=== PATIENT | male | born 1970 | race Caucasian/White ===

== ENCOUNTER 2020-06-06 14:37 | Outpatient (CLI) | payer BC, SELFPAY ==
--- NOTE | ~2020-06-06 | XR_ITS ---
EXAMINATION: XR abdomen/kub 1V EXAM DATE: 06/06/2020 14:56 INDICATION: Right-sided abdominal pain. TECHNIQUE: Frontal projection of the upper abdomen, frontal projection lower abdomen/pelvis for inter pretation. There is no prior study for comparison. FINDINGS: There is expected amount of colonic stool and gas. No small bowel dilation, nonobstructiv e bowel gas pattern. There are no suspicious calcifications identified. There is no organomegaly suspected. There is mild to moderate symmetric bilateral hip primary osteoarthritis. IMPRESSION: Unremarkable abdomen x-ray exam. Reviewed, dictated and finalized at location [facility]
== END 2020-06-06 14:38 | disposition home or self-care (01) ==
LOC: ANHIMG 14:48
PROVIDERS: PCP Family Medicine; Visit Provider Nurse Practitioner Family
DX: R10.9 Unspecified abdominal pain (principal)
CPT/HCPCS: 74018

== ENCOUNTER 2021-04-11 01:19 | Day surgery (SDC) | payer BC, SELFPAY ==
[2021-03-21 14:00] VITALS: BMI 39.0
[2021-04-11 06:56] VITALS: BP 139/107; PULSE 92; RESP 20; TEMP 36.5; O2SAT 97; BMI 37.4
[2021-04-11] MEDS: LACTATED RINGERS 1,000 ML 150 ML IV CONT (06:59)
--- NOTE | 2021-04-11 07:47 | PM.HPGS ---
History of Present Illness History of Present Illness Consent: Risks, benefits, and alternatives have been discussed and questions answered. Patient agrees to proceed with procedure. Chief complaint: neoplasm screening Narrative: Tony Boykin is a 50 year old male Referred for colon cancer screening Review of Systems Review of Systems: All systems reviewed & are unremarkable except as noted in HPI and below PMFSH Past Medical History Medical History BMI 37.0-37.9, adult BMI 38.0-38.9,adult FRIAS (dyspnea on exertion) Multiple myeloma Social History Social History Alcohol intake: current Substance use: never Substance use type: does not use Living arrangements: with family Spiritual care concerns: No Meds Home Medications and Allergies Home Medications Medication Instructions Recorded Confirmed Type lenalidomide 15 mg capsule 15 mg PO DAILY 05/12/19 04/11/21 History Allergies Allergy/AdvReac Type Severity Reaction Status Date / Time Sulfa (Sulfonamide Allergy Unknown Unknown Verified 04/11/21 06:55 Antibiotics) Vital Signs Vital Signs - 24 hr 04/11/21 06:56 Temperature 36.5 C Pulse Rate 92 Respiratory Rate 20 Blood Pressure 139/107 H Pulse Oximetry 97 Exam Resp: Auscultation: clear to auscultation bilaterally Cardio: Rate: regular rate Rhythm: regular rhythm GI: GI Palp: Yes Soft to palpation and No Tenderness to palpation present (GI) Assessment and Plan Assessment and plan (1) Screen for colon cancer: Code(s): Z12.11 - Encounter for screening for malignant neoplasm of colon Status: Acute Assessment and Plan: Colonoscopy with possible biopsy or polypectomy or cautery or injection of substances.
--- NOTE | 2021-04-11 07:51 | WPDANESEPPF ---
Anes - Initial Pre Proc Eval Procedure: Operation Date: 04/11/21 08:00 Proposed Procedures p Screening Colonoscopy - Paul Leone MD Date/Time: 04/11/21 07:51 Surgeon: Paul Leone MD Pre Op Diagnosis: neoplasm screening Patient Data Age: 50 Gender: M Height: 1.75 m Weight: 115 kg Last Vital Signs Temp 97.7 F 04/11/21 06:56 Pulse 92 04/11/21 06:56 Resp 20 04/11/21 06:56 BP 139/107 H 04/11/21 06:56 Pulse Ox 97 04/11/21 06:56 Allergies Allergy/AdvReac Type Severity Reaction Status Date / Time Sulfa (Sulfonamide Allergy Unknown Unknown Verified 04/11/21 06:55 Antibiotics) Home Medications Medication Instructions Recorded Confirmed Type lenalidomide 15 mg capsule 15 mg PO DAILY 05/12/19 04/11/21 History Patient hx anesthesia problems: none Family hx anesthesia problems: none Results Review: All pre-operative results and documents have been reviewed as part of the pre-operative evaluation. [facility] Past Medical History Medical History BMI 37.0-37.9, adult BMI 38.0-38.9,adult FRIAS (dyspnea on exertion) Multiple myeloma Social History Social History Alcohol intake: current Substance use: never Substance use type: does not use Living arrangements: with family Spiritual care concerns: No Anes - Eval Final PreProcedure Day of Procedure 04/11/21 07:51 Patient weight: obese Heart: regular rate and rhythm Lungs: clear to auscultation Airway: Mallampati scale class II Neurological: alert and oriented Last oral intake: >/= 8 hours ASA classification: III Emergent: no Anesthetic plan: proceed Anesthesia type and monitoring: general GIVS and standard monitoring Results Review: All pre-operative results and documents have been reviewed as part of the pre-operative evaluation. Informed Consent: The patient's anesthetic plan and its attendant risks and benefits were discussed with the patient/family/POA. Questions were solicited and answers provided to the satisfaction of the patient/family/POA.
[2021-04-11 08:19] VITALS: BP 128/66; PULSE 76; RESP 38; O2SAT 98
[2021-04-11 08:29] VITALS: BP 138/91; PULSE 68; RESP 19; O2SAT 97
[2021-04-11 08:39] VITALS: BP 129/91; PULSE 70; RESP 22; O2SAT 99
== END 2021-04-11 08:55 | disposition home or self-care (01) ==
PROVIDERS: PCP Family Medicine; Visit Provider Internal Medicine Gastroenterology
PROC: 0DJD8ZZ Inspection of Lower Intestinal Tract, Via Natural or Artificial Opening Endoscopic (ICD-10-PCS; CPT 45378; principal; 2021-04-11 08:00)
DX: Z12.11 Encounter for screening for malignant neoplasm of colon (principal); K57.30 Diverticulosis of large intestine without perforation or abscess without bleeding; C90.00 Multiple myeloma not having achieved remission; E66.9 Obesity, unspecified; Z68.37 Body mass index [BMI] 37.0-37.9, adult
CPT/HCPCS: 45378; J2704; J7120

== ENCOUNTER 2021-11-18 09:31 | Outpatient (CLI) | payer BC, SELFPAY ==
--- NOTE | ~2021-11-18 | XR_ITS ---
EXAMINATION: XR chest 2V DATE: 11/18/2021 09:49 INDICATION: Other chest pain. Cough and shortness of breath. TECHNIQUE: Frontal and lateral views of the chest were obtained. COMPARISON: Chest 2 views 07/04/2019, chest CT 05/12/2019 FINDINGS: There is discoid atelectasis in right midlung zone. No pleural effusion or pneumothorax. Th e heart size is normal. There are old healed bilateral rib fractures. There is an old burst fracture of T6. IMPRESSION: 1. Discoid atelectasis in right midlung zone. Follow-up radiographs are recommended to confirm resolu tion and exclude obstructing mass. Reviewed, dictated and finalized at location A. IMPRESSION: 1. Discoid atelectasis in right midlung zone. Follow-up radiographs are recomme nded to confirm resolution and exclude obstructing mass.
--- NOTE | 2021-11-18 09:35 | ECG_ITS ---
Measurements Intervals [place] Rate: 78 P: 16 IL: 150 QRS: -17 QRSD: 76 T: 29 QT: 392 QTc: 447 Interpretive Statements SINUS RHYTHM FREQUENT ATRIAL PREMATURE COMPLEXES EARLY PRECORDIAL R/S TRANSITION VOLTAGE CRITERIA FOR LVH ABNORMAL ECG Electronically Signed On 11-18-2021 14:12:53 CDT by Edson Brandon D.O.
== END 2021-11-18 09:32 | disposition home or self-care (01) ==
PROVIDERS: PCP Family Medicine; Visit Provider Nurse Practitioner Family
DX: R07.89 Other chest pain (principal); R06.02 Shortness of breath; R91.8 Other nonspecific abnormal finding of lung field; R94.31 Abnormal electrocardiogram [ECG] [EKG]
CPT/HCPCS: 71046; 93005

== ENCOUNTER 2021-11-18 19:24 | Emergency (ER) | payer BC, SELFPAY ==
[2021-11-18 19:35] VITALS: BP 173/78; PULSE 58; RESP 18; TEMP 36.3; O2SAT 98
[2021-11-18 20:14] VITALS: BP 166/89; PULSE 100; PULSE 80; RESP 22; O2SAT 99
[2021-11-18 20:51] LABS: Basophils Absolute Auto 0.1 K/mm3 (0.0-0.1); Basophils Percent Auto 1.6 % (0.2-1.2); Eosinophils Percent Auto 0.9 % (0-4.4); Hematocrit 40.4 % (42.0-52.0); Hemoglobin 13.7 g/dL (14.0-18.0); Immature Granulocyte Absolute 0.02 K/mm3 (0.00-0.031); Immature Granulocyte Percent A 0.4 % (0-0.5); Lymphocytes Absolute Auto 2.31 K/mm3 (0.9-3.2); Lymphocytes Percent Auto 51.4 % (18.3-44.2); Mean Corpuscular HGB Conc 33.9 g/dl (32-36); Mean Corpuscular Hemoglobin 32.2 pg (26-34); Mean Corpuscular Volume 95.1 fl (80-100); Mean Platelet Volume 9.4 fl (7.4-10.4); Monocytes Absolute Auto 0.5 K/mm3 (0.1-0.6); Monocytes Percent Auto 10.5 % (2.6-8.5); Neutrophils Absolute Auto 1.6 K/mm3 (1.3-6.7); Neutrophils Percent Auto 35.2 % (45.5-73.1); Platelet Count Result 269 k/mm3 (150-375); Red Blood Count 4.25 M/mm3 (4.6-6.20); Red Cell Distribution Width 13.8 % (11.5-14.5); White Blood Count 4.5 K/mm3 (4.5-10.0)
[2021-11-18 21:01] LABS: Prothrombin Time 12.7 Seconds (11.1-14.7)
[2021-11-18 21:02] LABS: Alanine Aminotransferase 43 U/L (6-50); Albumin Level 3.9 g/dL (3.5-5.1); Alkaline Phosphatase 83 U/L (38-126); Anion Gap 8 mmol/L (8-16); Aspartate Amino Transferase 41 U/L (17-59); Bilirubin,Total 0.6 mg/dL (0.2-1.3); Blood Urea Nitrogen 22 mg/dL (9-20); Calcium 8.8 mg/dL (8.4-10.2); Carbon Dioxide 24 mmol/L (22-30); Chloride 107 mmol/L (98-107); Estimated CRCL calculation 65 ml/min; Estimated Glomerular Filt Rate 49; Glucose 136 mg/dL (65-110); Partial Thromboplastin Time 25.4 SECONDS (22.3-36.8); Potassium 3.8 mmol/L (3.4-5.0); Sodium 139 mmol/L (137-145)
--- NOTE | 2021-11-18 21:17 | ED.SOB ---
HPI - SOB/Dyspnea General Chief Complaint: Shortness of Breath/Dyspnea Stated Complaint: sob, chest pain Time Seen by Provider: 11/18/21 20:15 History of Present Illness HPI Narrative: Patient is a 51-year-old male with history of multiple myeloma and PE who presents ER with cough and shortness of breath. Reports cough has been ongoing couple months. It occasionally makes him short of breath with exertion. No shortness of breath this time. No chest pain or chest pressure. Reports he had an outpatient chest x-ray that showed possible lung obstruction and then his doctor called him at 5 PM and sent him to the ER. He has no hemoptysis. No lower extremity swelling. No pain in the calf. Patient is not currently anticoagulated. No fevers or chills, occasional sweats due to his multiple myeloma. Related Data Home Medications Medication Instructions Recorded Confirmed lenalidomide 15 mg capsule 15 mg PO DAILY 05/12/19 11/18/21 (Revlimid) cholecalciferol (vitamin D3) 10 10 mcg PO DAILY 11/18/21 11/18/21 mcg (400 unit) capsule Allergies Allergy/AdvReac Type Severity Reaction Status Date / Time Sulfa (Sulfonamide Allergy Unknown Unknown Verified 11/18/21 08:27 Antibiotics) Review of Systems Review of Systems: All systems reviewed & are unremarkable except as noted in HPI and below Constitutional: Constitutional: Denies chills, Denies fatigue and Denies fever(s) Comments: Occasional sweats ENT: Denies nasal congestion and Denies sore throat Cardiovascular: Cardiovascular: Denies chest pain, Denies rapid heart rate and Denies radiating jaw, neck or arm pain Respiratory: Respiratory: Denies chest congestion, Reports cough, Reports dyspnea and Denies wheezing Gastrointestinal: Gastrointestinal: Denies abdominal pain, Denies nausea and Denies vomiting [facility] Past Medical History Medical History (Updated 11/18/21 @ 21:23 by Oscar Wyatt MD) BMI 37.0-37.9, adult BMI 38.0-38.9,adult FRIAS (dyspnea on exertion) Multiple myeloma Pulmonary embolism Surgical History Surgical History (Updated 11/18/21 @ 21:20 by Oscar Wyatt MD) No pertinent past surgical history Social History Social History Alcohol intake: current Substance use: never Substance use type: does not use Spiritual care concerns: No Exam Narrative: GENERAL: Well-appearing, well-nourished, and in no acute distress. HEAD: Normocephalic, atraumatic. EYES: PERRL and EOMI. ENT: Mucous membranes moist. CHEST: Clear to auscultation. No respiratory distress. HEART: Regular rate and rhythm. Normal peripheral pulses. ABDOMEN: Soft, nontender, nondistended EXTREMITIES: Normal range of motion. No edema. SKIN: Warm, dry, no rash. NEURO: Alert and oriented x3. PSYCH: Normal mood and affect. Course Course Emergency Course: Patient has declined CTA of the chest to rule out PE. Patient reports that his doctor tried to order a CT earlier but because of the prior authorization that need to occur it was not performed. He does not want to risk having to pay [id number] for a imaging study. He wishes to leave AGAINST MEDICAL ADVICE at this time. He understands that he may be risking and permanent disability by making this decision. He will contact his physicians in the morning for further evaluation and treatment. Vital Signs Vital signs: Vital Signs Temperature 97.4 F L 11/18/21 19:35 Pulse Rate 58 L 11/18/21 19:35 Respiratory Rate 18 11/18/21 19:35 Blood Pressure 173/78 H 11/18/21 19:35 Pulse Oximetry 98 11/18/21 19:35 Oxygen Delivery Room Air 11/18/21 19:35 Temperature 97.4 F L 11/18/21 19:35 Pulse Rate 100 11/18/21 20:14 Respiratory Rate 22 H 11/18/21 20:14 Blood Pressure 166/89 H 11/18/21 20:14 Pulse Oximetry 99 11/18/21 20:14 Oxygen Delivery Room Air 11/18/21 20:14 MDM - SOB/Dyspnea Lab Data Result diag
== END 2021-11-19 01:11 | disposition left against medical advice (07) ==
PROVIDERS: Emergency Provider Emergency Medicine; PCP Family Medicine
DX: R06.00 Dyspnea, unspecified (principal)
CPT/HCPCS: 36415; 80053; 85025; 85610; 85730; 99283

== ENCOUNTER 2021-11-19 09:49 | Outpatient (CLI) | payer BC, SELFPAY ==
--- NOTE | ~2021-11-19 | CT_ITS ---
EXAMINATION: CTA chest PE protocol DATE: 11/19/2021 10:22 INDICATION: Shortness of breath TECHNIQUE: Computed tomography (CT) pulmonary angiogram of the chest was performed with 100 mL Omnipa que-350 intravenous contrast. Additional 3D reconstructions utilizing coronal maximum intensity proje ction (MIP) were performed. Automated exposure control and iterative reconstruction technique were em ployed. The dose-length product was 855.65 mGy-cm. COMPARISON: Left/ FINDINGS: Excellent contrast opacification of the pulmonary arteries. There is mild streak artifact from dense contrast in the superior vena cava and right atrium. Mild scattered respiratory motion artifact which does not significantly limit evaluation. No pulmonary embolism. Lenticular region of consolidation w ith some surrounding groundglass and tree-in-bud opacities at the anterior segment of the right upper lobe and and additional tree-in-bud opacities in the posterior segment of the right upper lobe, both regions consistent with pneumonia. No pulmonary edema or pleural effusion. Heart size is normal. No pericardial effusion. 5.0 x 4.7 cm these from aneurysm of the ascending thoracic aorta. No dissection . No pathologically enlarged thoracic lymphadenopathy. Bilateral gynecomastia. Diffuse hepatic steato sis. Osteopenia with numerous chronic lytic lesions of bone suspicious for multiple myeloma. Chronic T6 compression fracture with change of prior vertebroplasty. Old healed bilateral rib fractures. IMPRESSION: 1. No pulmonary embolism. 2. Right upper lobe pneumonia. 3. 5.0 cm ascending thoracic aortic aneurysm. 4. Diffuse osteopenia and widespread chronic lytic bone lesions consistent with known history of mult iple myeloma. Reviewed, dictated and finalized at location B. IMPRESSION: 1. No pulmonary embolism. 2. Right upper lobe pneumonia. 3. 5.0 cm ascending thoracic aortic aneurysm. 4. Diffuse osteopenia and widespread chronic lytic bone lesions consistent with known history of multiple myeloma.
== END 2021-11-19 09:50 | disposition home or self-care (01) ==
PROVIDERS: PCP Family Medicine; Visit Provider Nurse Practitioner Family
DX: R06.02 Shortness of breath (principal); R07.89 Other chest pain; R61 Generalized hyperhidrosis; I71.4 Abdominal aortic aneurysm, without rupture; M85.88 Other specified disorders of bone density and structure, other site
CPT/HCPCS: 71275; Q9967

== ENCOUNTER → 2022-09-04 14:34 | Outpatient (CLI) | payer BC, SELFPAY ==
--- NOTE | ~2022-09-04 | XR_ITS ---
XR chest 2V 09/04/2022 14:48 Indication: Cough. History of multiple myeloma. Procedure: 2 view chest Comparison: Comparison to multiple prior studies sequentially, with oldest reviewed study dated 03/10. Findings: Heart size normal. No focal air space disease, pulmonary edema, pleural effusion or suspect ed pneumothorax. There are multiple healed right rib fractures. Impression: 1: No acute cardiopulmonary disease. Reviewed, dictated and finalized at location A. Impression: 1: No acute cardiopulmonary disease.
== END ==
PROVIDERS: PCP Family Medicine; Visit Provider Nurse Practitioner Family
DX: R05.9 Cough, unspecified (principal)
CPT/HCPCS: 71046

== ENCOUNTER 2023-10-11 17:45 | Inpatient (IN) | payer BC, SELFPAY ==
[2023-10-11] VITALS (11 sets, daily range): BP systolic 104–138; BP diastolic 55–87; PULSE 89–176; RESP 16–23; TEMP 36.6–37.2; O2SAT 97–100; BMI 40.2
--- NOTE | ~2023-10-11 | XR_ITS ---
EXAMINATION: XR chest 1V portable Exam Date/Time: 10/11/2023 18:00 CDT HISTORY: elevated hr Comparison: 08/25/2022, report only. RESULT: Lines, tubes, and devices: None. Lungs and pleura: Clear. Cardiomediastinal silhouette: Unremarkable. Other: No acute osseous or upper abdominal finding. Old healed right rib fractures. IMPRESSION: No acute cardiopulmonary process. Reviewed, dictated and finalized at location K.
--- NOTE | 2023-10-11 17:50 | ECG_ITS ---
SEE SCANNED COPY FOR CONFIRMED REPORT MTDD
[2023-10-11 18:11] LABS: Basophils Percent Auto 0.8 % (0.2-1.2); Eosinophils Absolute Auto 0.1 K/mm3 (0-0.3); Eosinophils Percent Auto 1.6 % (0-4.4); Hematocrit 42.3 % (42.0-52.0); Hemoglobin 14.6 g/dL (14.0-18.0); Immature Granulocyte Absolute 0.02 K/mm3 (0.00-0.031); Immature Granulocyte Percent A 0.4 % (0-0.5); Lymphocytes Percent Auto 44.5 % (18.3-44.2); Mean Corpuscular HGB Conc 34.5 g/dl (32-36); Mean Corpuscular Hemoglobin 32.9 pg (26-34); Mean Corpuscular Volume 95.3 fl (80-100); Mean Platelet Volume 9.8 fl (7.4-10.4); Monocytes Absolute Auto 0.5 K/mm3 (0.1-0.6); Monocytes Percent Auto 10.7 % (2.6-8.5); Neutrophils Absolute Auto 2.1 K/mm3 (1.3-6.7); Platelet Count Result 188 k/mm3 (150-375); Red Blood Count 4.44 M/mm3 (4.6-6.20); Red Cell Distribution Width 14.3 % (11.5-14.5); White Blood Count 4.9 K/mm3 (4.5-10.0)
--- NOTE | 2023-10-11 18:14 | ECG_ITS ---
SEE SCANNED COPY FOR CONFIRMED REPORT MTDD
--- NOTE | 2023-10-11 18:15 | ED.ARRPALP ---
HPI - Arrhythmia/Palpitations General Chief Complaint: Arrhythmia/Palpitations Stated Complaint: high HR, [facility] sent pt over. Denies CP Time Seen by Provider: 10/11/23 17:59 History of Present Illness HPI narrative: Pt presents with rapid heart rate from outpatient appointment at [facility] earlier today. Pt had HR in 170's. Pt denies CP. Pt has some SOB with exertion at times. Pt says he noticed his apple watch told him his HR was 170's a week ago but it resolved. Pt says it was that rate again today and then it resolved again but recurred. Pt has history of multiple myeloma and is in remission. Pt takes losartan and metoprolol for BP. Pt sees Dr Waldrop at [place]. Related Data Home Medications Medication Instructions Recorded Confirmed lenalidomide 15 mg capsule 15 mg PO DAILY 05/12/19 02/18/23 (Revlimid) cholecalciferol (vitamin D3) 10 10 mcg PO DAILY 11/18/21 02/18/23 mcg (400 unit) capsule Allergies Allergy/AdvReac Type Severity Reaction Status Date / Time Sulfa (Sulfonamide AdvReac Intermediate Rash Verified 10/11/23 17:47 Antibiotics) Review of Systems Review of Systems: All systems reviewed & are unremarkable except as noted in HPI and below PMFSH Past Medical History Medical History (Updated 10/11/23 @ 18:43 by Chelsea Carroll III, DO) BMI 38.0-38.9,adult BMI greater than 40 Cough FRIAS (dyspnea on exertion) FH: bone marrow transplant Persistent headaches Pulmonary embolism Right flank pain Sinusitis Surgical History Surgical History No pertinent past surgical history Family History Family History Father No problems noted. Mother Diabetes mellitus Sibling No problems noted. 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 Gender identity (if verbalized by the patient): Male Spiritual care concerns: No Exam Const: General: healthy appearing Nutritional Appearance: well nourished Orientation/consciousness: patient oriented x3 Limitations: no limitations Resp: Effort & Inspection: normal respiratory effort Auscultation: clear to auscultation bilaterally Cardio: Rate: tachycardic Rhythm: regular rhythm Other: later tachycardic and irregular GI: Auscultation: normal bowel sounds Skin: General skin exam: normal color Wounds: no wounds Neuro: General: patient oriented x3, moves all extremities and no focal motor deficits Speech: normal speech Extrem: General: normal to inspection and no clubbing, cyanosis or edema Psych: Mental Status: mental status grossly normal Affect: normal affect Attitude: cooperative Course Vital Signs Vital signs: Vital Signs Temperature 98.9 F 10/11/23 17:55 Pulse Rate 176 H 10/11/23 17:55 Respiratory Rate 16 10/11/23 17:55 Blood Pressure 107/87 10/11/23 17:55 Pulse Oximetry 99 10/11/23 17:55 Oxygen Delivery Room Air 10/11/23 17:55 Temperature 98.9 F 10/11/23 17:55 Pulse Rate 101 H 10/11/23 19:11 Respiratory Rate 20 10/11/23 19:11 Blood Pressure 121/55 L 10/11/23 19:11 Pulse Oximetry 97 10/11/23 19:11 Oxygen Delivery Room Air 10/11/23 17:55 MDM - Arrhythmia/Palpitations MDM Narrative Medical decision making narrative: Dilip
[2023-10-11 18:19] LABS: Alanine Aminotransferase 88 U/L (6-50); Albumin Level 4.3 g/dL (3.5-5.1); Alkaline Phosphatase 95 U/L (38-126); Anion Gap 5 mmol/L (4-12); Aspartate Amino Transferase 77 U/L (17-59); Blood Urea Nitrogen 20 mg/dL (9-20); Calcium 9.4 mg/dL (8.4-10.2); Carbon Dioxide 29 mmol/L (22-30); Chloride 103 mmol/L (98-107); Estimated CRCL calculation 76 ml/min; Estimated Glomerular Filt Rate 57; Glucose 199 mg/dL (65-110); Lipase 81 U/L (23-300); Potassium 4.2 mmol/L (3.4-5.0); Sodium 137 mmol/L (137-145)
[2023-10-11] MEDS: ASPIRIN 81 MG CHEWABLE TABLET 324 MG PO (18:19)
[2023-10-11 18:22] LABS: Prothrombin Time 13.8 Seconds (11.1-14.7)
--- NOTE | 2023-10-11 18:28 | ECG_ITS ---
SEE SCANNED COPY FOR CONFIRMED REPORT MTDD
[2023-10-11 18:31] LABS: Troponin I 0.032 ng/mL (0.000-0.034)
--- NOTE | 2023-10-11 18:36 | PC.NURSE ---
Pt converted to Afib with RVR from SVT. at bedside, EKG performed medication orders changed
[2023-10-11] MEDS: dilTIAZem HCl INJ 25 MG/5 ML VIAL 30 MG IV PUSH (18:42)
[2023-10-11] MEDS: SODIUM CHLORIDE 0.9% IV 1,000 ML 999 ML (18:43)
[2023-10-11] MEDS: dilTIAZem 100 MG/100 ML 100 MG/100 ML BAG 10 MG IV CONT (18:45)
[2023-10-11 18:57] LABS: NT Pro B Type Natriuretic Pept 1440 pg/mL (19.9-100)
--- NOTE | 2023-10-11 19:01 | PC.NURSE ---
Pt responding to Cardizem defib pads remain intact & connected to monitor.
--- NOTE | 2023-10-11 19:58 | PM.IMHP ---
H&P: HPI History of Present Illness Date/Time: 10/11/23 19:58 Chief Complaint: Abnormal heart rate Narrative: This is a 53-year-old male with past medical history significant for morbid obesity, multiple myeloma, hypertension. patient presented to the emergency after he was found to have a heart rate of 170 this happened while at his follow-up visit at his cancer treatment center, he is currently undergoing treatment for multiple myeloma. Patient denies any lightheadedness, palpitations, dizziness, syncope, near syncope stated he has been fatigue and decreased stamina, no fevers, no rigors, no chills, no leg swelling, no PND, no orthopnea, no cough, no sputum production. Preliminary workup was significant for upon her presentation to emergency room patient was noted to have a heart rate in the 100 and 70s and started on diltiazem drip he received adenosine prior to this which showed atrial fibrillation with rapid ventricular response. Patient has been placed in observation for further evaluation management and treatment. EXAMINATION:? XR chest 1V portable Exam Date/Time:? 10/11/2023 18:00 CDT HISTORY: elevated hr ? Comparison:? 08/25/2022, report only. RESULT: Lines, tubes, and devices:? None. Lungs and pleura:? Clear. Cardiomediastinal silhouette:? Unremarkable. Other:? No acute osseous or upper abdominal finding. Old healed right rib fractures. ? IMPRESSION: No acute cardiopulmonary process. Review of Systems Review of Systems: abnormal heart rate Constitutional: Constitutional: Denies chills, Reports fatigue, Denies fever(s), Reports lethargy, Denies malaise and Denies night sweats Eyes: Eyes: Denies change in vision ENT: Denies dysphagia, Denies vertigo, Denies dizziness and Denies odynophagia Cardiovascular: Cardiovascular: Denies chest pain, Denies syncope, Denies rapid heart rate, Denies pedal edema, Denies leg edema, Denies radiating jaw, neck or arm pain, Denies palpitations, Denies orthopnea and Denies paroxysmal nocturnal dyspnea Respiratory: Respiratory: Denies cough and Denies excessive phlegm production Gastrointestinal: Gastrointestinal: Denies abdominal pain, Denies dyspepsia, Denies heartburn, Denies diarrhea, Denies nausea and Denies vomiting Genitourinary: Genitourinary: Denies dysuria Musculoskeletal: Musculoskeletal: Reports back pain Integumentary/Breasts: Skin/Breast: Denies rash Neurologic: Denies vertigo, Denies dizziness, Denies focal weakness and Denies Sensory deficit (Neuro) Psychiatric: Psychiatric: Reports no additional psychiatric complaints and Reports as per HPI Endocrine: Endocrine: Denies cold intolerance, Denies fatigue, Denies flushing, Denies heat intolerance, Denies polyphagia, Denies polydipsia, Denies polyuria and Denies palpitations Hematologic/Lymphatic: Hematologic/Lymphatic: Reports no additional hematologic/lymphatic complaints and Reports as per HPI Allergic/Immunologic: Allergic/Immunologic: Reports no additional allergic/immunologic complaints and Reports as per HPI PMFSH Past Medical History Medical History (Updated 10/12/23 @ 01:48 by Kenny Liriano MD) BMI 38.0-38.9,adult BMI greater than 40 Cough FRIAS (dyspnea on exertion) FH: bone marrow transplant Persistent headaches Pulmonary embolism Right flank pain Sinusitis Surgical History Surgical History No pertinent past surgical history Family History Family History Father No problems noted. Mother Diabetes mellitus Sibling No problems noted. Social History Social History Smoking status: Former smoker Second hand tobacco smoke exposure: No Smoking end date: 06/21/00 Alcohol intake: current Substance use: never Substance use type: does not use Do You Feel Safe in your Home?: Yes
--- NOTE | 2023-10-11 20:53 | ADMGEN ---
This patient, Tony Boykin, was admitted to IMU Room 214-01. Patient/family oriented to hospital policies and general routines including ID bracelet, bed and alarms, visiting hours, pain management, procedures, bathroom and other care routines, personal items, smoking policy, room service/diet, and visiting hours. Information on how to activate the Rapid Response Team has been discussed. Patient/Family are encouraged to report perceived risks to care and to ask questions if they do not understand what they are told or what they should do.
[2023-10-11 21:41] LABS: Troponin I 0.021 ng/mL (0.000-0.034)
--- NOTE | 2023-10-11 21:59 | PHAR ---
PT'S HOME MED POMALYST (POMALIDOMIDE) 2 MG CAPSULE VERIFIED BY PHARMACY
[2023-10-11] MEDS: dilTIAZem HCL 12 HR 60 MG CAP.12HR 120 MG PO (22:15)
[2023-10-11] MEDS: APIXABAN 5 MG TABLET PO (22:15)
[2023-10-12] VITALS (11 sets, daily range): BP systolic 98–118; BP diastolic 68–70; PULSE 83–116; RESP 16–22; TEMP 36.1–36.5; O2SAT 95–99
--- NOTE | 2023-10-12 | ECHO_ITS ---
Patient Info Name: Tony Boykin Age: 53 years : 1970 Gender: Male Ht: 69 in Wt: 272 lbs BSA: 2.51 m2 HR: 85 bpm BP: 98 / 68 mmHg Heart Rhythm: Sinus Rhythm Technical Quality: Fair Exam Date: 10/12/2023 9:46 AM Exam Location: Echo Lab Patient Status: Inpatient Admit Date: 10/11/2023 Staff Ordering Physician: Kenny Liriano MD Flatbed Owner Operator: Fransisco Monteiro RDCS Attending Provider: Kenny Liriano MD Referring Physician: Heri GONZALEZ; Exam Type: CA echo doppler color flow Study Info Indications - A FIB Complete two-dimensional, color flow and Doppler transthoracic echocardiogram is performed. Summary 1. Complete two-dimensional, color flow and Doppler transthoracic echocardiogram is performed. 2. Left ventricular chamber dimension is normal. 3. Left ventricular systolic function is normal, estimated at 55-60%. 4. There is mild concentric increased left ventricular wall thickness. 5. The left ventricular diastolic function is normal. 6. Left atrial chamber dimension is moderately enlarged. 7. There is mild aortic valve sclerosis. 8. There is moderate aortic valve regurgitation. 9. There is mild mitral valve regurgitation. 10. There is trace tricuspid valve regurgitation. 11. No pulmonary hypertension, estimated pulmonary arterial systolic pressure is 25 mmHg. Left Ventricle Tissue doppler E/e' is not performed. Left ventricular chamber dimension is normal. Left ventricular systolic function is normal, estimated at 55-60%. There is mild concentric increased left ventricular wall thickness. The left ventricular diastolic function is normal. Right Ventricle Right ventricular chamber dimension is normal. Right ventricular systolic function is normal. Left Atria Left atrial chamber dimension is moderately enlarged. Right Atria Right atrial chamber dimension is normal. Aortic Valve The aortic valve is trileaflet. There is mild aortic valve sclerosis. There is no aortic valve stenosis. There is moderate aortic valve regurgitation. Pulmonic Valve There is no pulmonic regurgitation. Mitral Valve There is no mitral valve stenosis. There is mild mitral valve regurgitation. Tricuspid Valve There is trace tricuspid valve regurgitation. No pulmonary hypertension, estimated pulmonary arterial systolic pressure is 25 mmHg. Pericardium/Pleural There is no pericardial effusion. Inferior Vena Cava Normal inferior vena cava with >50% collapse upon inspiration consistent with normal right atrial pressure, 5 mmHg. Aorta The aortic root size at the sinus of Valsalva is normal. Left Ventricular Outflow Tract Name Value Normal LVOT 2D LVOT Diameter 2.3 cm LVOT Doppler LVOT Peak Gradient 4 mmHg LVOT Mean Gradient 2 mmHg LVOT VTI 20 cm LVOT VTI/AV VTI Ratio 1.0 LVOT Stroke Volume 85 ml LVOT CO 6.7 l/min LVOT CI 2.7 l/min/m2 Pulmonic Valve Name Value
[2023-10-12 00:39] LABS: Troponin I 0.022 ng/mL (0.000-0.034)
[2023-10-12] MEDS: LOSARTAN POTASSIUM 25 MG TABLET PO (09:15)
[2023-10-12] MEDS: APIXABAN 5 MG TABLET PO (09:15)
[2023-10-12] MEDS: dilTIAZem HCL 12 HR 60 MG CAP.12HR 120 MG PO (09:15)
[2023-10-12] MEDS: METOPROLOL SUCCINATE EXT REL 25 MG TABCR PO (09:15)
--- NOTE | 2023-10-12 10:35 | PM.IMPN ---
Progress Note: A&P Assessment and Plan (1) Atrial fibrillation with rapid ventricular response: Code(s): I48.91 - Unspecified atrial fibrillation Status: Acute (2) Morbid obesity with BMI of 40.0-44.9, adult: Code(s): E66.01 - Morbid (severe) obesity due to excess calories; Z68.41 - Body mass index [BMI] 40.0-44.9, adult Status: Acute (3) Shortness of breath on exertion: Code(s): R06.02 - Shortness of breath Status: Acute Plan (1) Atrial fibrillation with rapid ventricular response: ?Code(s): I48.91 - Unspecified atrial fibrillation ?Status:?Acute ?Assessment and Plan: ?admit to IMU ?continue to monitor heart rate ? off of diltiazem drip ? cardiology consult ?echocardiogram in a.m. Appreciate cardiology consultation, meat counter clerk recommend discharge patient was Cardizem ER 300 mg daily p.o. continue current metoprolol does, continue Eliquis and patient will see patient's meat counter clerk tomorrow in the office (2) Essential hypertension: ?Code(s): I10 - Essential (primary) hypertension ?Status:?Acute ?Assessment and Plan: ?continue losartan (3) Multiple myeloma: ?Qualifiers: ?Multiple myeloma remission status:?not in remission? Qualified Code(s):?C90.00 - Multiple myeloma not having achieved remission ?Code(s): C90.00 - Multiple myeloma not having achieved remission ?Status:?Chronic ?Assessment and Plan: ?follow-up in the outpatient setting (4) Morbid obesity with BMI of 40.0-44.9, adult: ?Code(s): E66.01 - Morbid (severe) obesity due to excess calories; Z68.41 - Body mass index [BMI] 40.0-44.9, adult ?Status:?Acute ?Assessment and Plan: ?lifestyle and diet modifications Subjective Date/time seen: 10/12/23 10:35 Interval history: patient afebrile, blood pressure stable, heart rate is controlled, patient on room air, no O2 desaturation patient denies palpitation, chest pain Exam Narrative: GENERAL: Pleasant, in no acute distress. Well-nourished. - EYES: EOMI. Anicteric. - HENT: Moist mucous membranes. - LUNGS: Clear to auscultation bilaterally, no wheezing, rhonchi, or rales. - CARDIOVASCULAR: irregular irregular rhythm. No murmur. No JVD. - ABDOMEN: Soft, non-tender and non-distended. No palpable masses. - EXTREMITIES: No edema. Peripheral pulses 2+. Non-tender. - NEUROLOGIC: No focal neurological deficits. CN II-XII grossly intact. - PSYCHIATRIC: Awake, Alert and oriented x 3. Appropriate mood and affect. - SKIN: No rashes or lesions. Warm. - LYMPH: No cervical lymphadenopathy. Objective Data Vital Signs Vital Signs: Vital Signs - 24 hr 10/11/23 17:55 10/11/23 18:03 10/11/23 18:45 Temperature 98.9 F Pulse Rate 176 H 173 H 148 H Respiratory Rate 16 Blood Pressure 107/87 138/78 Pulse Oximetry 99 Oxygen Delivery Room Air 10/11/23 18:54 10/11/23 19:11 10/11/23 19:43 Temperature Pulse Rate 123 H 101 H 91 Respiratory Rate 18 20 Blood Pressure 128/58 L 121/55 L 104/69 Pulse Oximetry 98 97 Oxygen Delivery 10/11/23 20:43 10/11/23 20:52 10/11/23 22:00 Temperature 97.9 F Pulse Rate 90 89 90 Respiratory Rate 23 H 23 H Blood Pressure 104/64 118/70 Pulse Oximetry 97 100 Oxygen Delivery 10/11/23 20:56 10/12/23 00:16 10/11/23 21:00 Temperature 97.0 F L Pulse Rate 89 91 Respiratory Rate 22 H Blood Pressure 101/70 Pulse Oximetry 95 Oxygen Delivery Room Air 10/12/23 00:00 10/12/23 00:00 10/12/23 02:00 Temperature Pulse Rate 88 91 Respiratory Rate Blood Pressure Pulse Oximetry Oxygen Delivery Room Air 10/12/23 04:00 10/12/23 04:00 10/12/23 05:27 Temperature 97.7 F Pulse Rate 86 85 Respiratory Rate 20 Blood Pressure 98/68 L Pulse Oximetry 98 Oxygen Delivery Room Air 10/12/23 06:00 10/12/23 08:00 10/12/23 09:15 Temperature 97.3 F L Pulse Rate 86 94 83 Respiratory Rate 18 Blood Pressu
--- NOTE | 2023-10-12 12:21 | PM.CNCAR ---
Assessment and Plan Assessment and plan (1) Atrial fibrillation with rapid ventricular response: Code(s): I48.91 - Unspecified atrial fibrillation Status: Acute Assessment and Plan: This is a new diagnosis. He is rate controlled now on p.o. diltiazem and metoprolol. He has occasional RVR but is asymptomatic. Will shift diltiazem to long acting form and increase dose to 300mg daily continue current dose of metoprolol He has already been placed on anticoagulation with Eliquis He has follow up with his established hand assembler for puller over, Dr. Waldrop tomorrow He can be discharged from my point of view (2) Essential hypertension: Code(s): I10 - Essential (primary) hypertension Status: Acute Assessment and Plan: At goal. History of Present Illness History of Present Illness Consult date/time: 10/12/23 12:21 Requesting physician: Handy Talavera MD Consult reason: atrial fibrillation Reason For Visit: A Fib with RVR Narrative: Keon Boykin is a 53 year old male with morbid obesity, multiple myeloma, and hypertension. He was sent to the emergency department from his infusion center where he was receiving treatment because his heart rate was in the 170's. He was asymptomatic. Initial EKG appeared to show SVT in the 170's, but after rate slowed down with diltiazem his rhythm is clearly atrial flutter. He currently does not have any complaints and specifically denies palpitations, shortness of breath, and chest pain. He denies any history of arrhythmias but does see a hand assembler for puller over for hypertension and apparently had a reduced LVEF in the past. His echocardiogram here showed EF 50-55%. Review of Systems Review of Systems: All systems reviewed & are unremarkable except as noted in HPI and below PMFSH Past Medical History Medical History BMI 38.0-38.9,adult BMI greater than 40 Cough FRIAS (dyspnea on exertion) FH: bone marrow transplant Persistent headaches Pulmonary embolism Right flank pain Sinusitis Surgical History Surgical History No pertinent past surgical history Family History Family History Father No problems noted. Mother Diabetes mellitus Sibling No problems noted. Social History Social History Smoking status: Former smoker Second hand tobacco smoke exposure: No Smoking end date: 06/21/00 Alcohol intake: current Substance use: never Substance use type: does not use Do You Feel Safe in your Home?: Yes Lack of Transportation: No Lack of Food: Never True Current Housing: I Have Housing Concerned About Future Housing: No Difficulty Paying Gas/Electric Bills: No Difficulty Paying for Meds: No Currently Unemployed: No Education: Master's Degree or Higher Difficulty w/ Childcare or Family Care: No Living arrangements: with family Occupation/Education: occupation 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 Gender identity (if verbalized by the patient): Male Spiritual care concerns: No Meds Home Medications and Allergies Home Medications Medication Instructions Recorded Confirmed Type cholecalciferol (vitamin D3) 10 10 mcg PO DAILY 11/18/21 10/11/23 History mcg (400 unit) capsule cholecalciferol (vitamin D3) 1,250 1,250 mcg PO MONTHLY #8 caps 02/24/23 10/11/23 Rx mcg (50,000 unit) capsule metoprolol succinate 25 mg 25 mg PO DAILY #90 tabs 08/22/23 10/11/23 Rx tablet,extended release 24 hr apixaban 5 mg tablet (Eliquis) 5 mg PO BID 10/11/23 10/11/23 History losartan 25 mg tablet 25 mg PO DAILY 10/11/23 10/11/23 History pomalidomide 2 mg capsule See Rx Instructions .Route .COMPLEX 10/11/23 10/11/23 History (Pomalyst) Allergies Allergy/AdvReac Type Severity R
--- NOTE | 2023-10-12 14:33 | PM.DS ---
DS: Admitting Diagnosis Discharge Date 10/12/23 Admitting Diagnosis (1) Atrial fibrillation with rapid ventricular response: ?Code(s): I48.91 - Unspecified atrial fibrillation ?Status:?Acute (2) Morbid obesity with BMI of 40.0-44.9, adult: ?Code(s): E66.01 - Morbid (severe) obesity due to excess calories; Z68.41 - Body mass index [BMI] 40.0-44.9, adult ?Status:?Acute (3) Shortness of breath on exertion: ?Code(s): R06.02 - Shortness of breath ?Status:?Acute DS: Discharge Diagnosis Discharge Diagnosis (1) Atrial fibrillation with rapid ventricular response: Code(s): I48.91 - Unspecified atrial fibrillation Status: Acute (2) Morbid obesity with BMI of 40.0-44.9, adult: Code(s): E66.01 - Morbid (severe) obesity due to excess calories; Z68.41 - Body mass index [BMI] 40.0-44.9, adult Status: Acute (3) Shortness of breath on exertion: Code(s): R06.02 - Shortness of breath Status: Acute DS: Summary Hospital Course Hospital Course: ?This is a 53-year-old male with past medical history significant for morbid obesity, multiple myeloma, hypertension. patient presented to the emergency after he was found to have a heart rate of 170 this happened while at his follow-up visit at his cancer treatment center, he is currently undergoing treatment for multiple myeloma.? Patient denies any lightheadedness, palpitations, dizziness, syncope, near syncope stated he has been fatigue and decreased stamina, no fevers, no rigors, no chills, no leg swelling, no PND, no orthopnea, no cough, no sputum production.? Preliminary workup was significant for upon her presentation to emergency room patient was noted to have a heart rate in the 100 and 70s and started on diltiazem drip he received adenosine prior to this which showed atrial fibrillation with rapid ventricular response.? Patient has been placed in observation for further evaluation management and treatment. the following med issues have been addressed during hospitalization (1) Atrial fibrillation with rapid ventricular response: ?Code(s): I48.91 - Unspecified atrial fibrillation ?Status:?Acute ?Assessment and Plan: ?admit to IMU ?continue to monitor heart rate ? off of diltiazem drip ? cardiology consult ?echocardiogram in a.m. ? 1. Complete two-dimensional, color flow and Doppler transthoracic echocardiogram is performed. ? 2. Left ventricular chamber dimension is normal. ? 3. Left ventricular systolic function is normal, estimated at 55-60%. ? 4. There is mild concentric increased left ventricular wall thickness. ? 5. The left ventricular diastolic function is normal. ? 6. Left atrial chamber dimension is moderately enlarged. ? 7. There is mild aortic valve sclerosis. ? 8. There is moderate aortic valve regurgitation. ? 9. There is mild mitral valve regurgitation. ? 10. There is trace tricuspid valve regurgitation. ? 11. No pulmonary hypertension, estimated pulmonary arterial systolic pressure is 25 mmHg. Appreciate cardiology consultation, hot knife cutter recommend discharge patient was Cardizem ER 300 mg daily p.o. continue current metoprolol does, continue Eliquis and patient will see patient's hot knife cutter tomorrow in the office (2) Essential hypertension: ?Code(s): I10 - Essential (primary) hypertension ?Status:?Acute ?Assessment and Plan: hold losartan and added Cardizem ER 300 daily p.o. patient will see primary care doctor and hot knife cutter in the office, address medication per primary care doctor and hot knife cutter after evaluation (3) Multiple myeloma: ?Qualifiers: ?Multiple myeloma remission status:?not in remission? Qualified Code(s):?C90.00 - Multiple myeloma not having achieved remission ?Code(s): C90.00 - Multiple myeloma not having achieved remission ?Status:?Chronic ?Assessment and Plan: ?follow-up in the outpatient setting patient has no active b
== END 2023-10-12 16:19 | disposition home or self-care (01) | DRG 841 ==
LOC: ANHED 19:19 → ANHIMU 21:29
PROVIDERS: Emergency Medicine; Admitting Provider Internal Medicine; Emergency Provider Emergency Medicine; PCP Family Medicine; Visit Provider Hospitalist
DX: C90.00 Multiple myeloma not having achieved remission (principal); Z68.41 Body mass index [BMI] 40.0-44.9, adult; Z94.81 Bone marrow transplant status; E66.01 Morbid (severe) obesity due to excess calories; I10 Essential (primary) hypertension; Z86.711 Personal history of pulmonary embolism
CPT/HCPCS: 36415; 71045; 80053; 83690; 83880; 84484; 85025; 85610; 85730; 93005; 93306; 96365; 99285; A9270; J7030

== ENCOUNTER 2023-11-01 17:30 | Observation (INO) | payer BC, SELFPAY ==
[2023-11-01] VITALS (14 sets, daily range): BP systolic 117–147; BP diastolic 67–96; PULSE 66–113; RESP 18–26; TEMP 36.9; O2SAT 95–100; BMI 39.6
[2023-11-01 17:44] LABS: Glucose Point of Care 429 mg/dl (65-105)
[2023-11-01 18:40] LABS: Basophils Percent Auto 0.8 % (0.2-1.2); Eosinophils Percent Auto 0.6 % (0-4.4); Hematocrit 45.5 % (42.0-52.0); Hemoglobin 15.9 g/dL (14.0-18.0); Immature Granulocyte Absolute 0.02 K/mm3 (0.00-0.031); Immature Granulocyte Percent A 0.6 % (0-0.5); Lymphocytes Absolute Auto 1.51 K/mm3 (0.9-3.2); Lymphocytes Percent Auto 41.6 % (18.3-44.2); Mean Corpuscular HGB Conc 34.9 g/dl (32-36); Mean Corpuscular Volume 94.4 fl (80-100); Mean Platelet Volume 9.7 fl (7.4-10.4); Monocytes Absolute Auto 0.2 K/mm3 (0.1-0.6); Monocytes Percent Auto 5.5 % (2.6-8.5); Neutrophils Absolute Auto 1.9 K/mm3 (1.3-6.7); Neutrophils Percent Auto 50.9 % (45.5-73.1); Platelet Count Result 230 k/mm3 (150-375); Red Blood Count 4.82 M/mm3 (4.6-6.20); Red Cell Distribution Width 14.7 % (11.5-14.5); White Blood Count 3.6 K/mm3 (4.5-10.0)
[2023-11-01 18:57] LABS: Alanine Aminotransferase 97 U/L (6-50); Albumin Level 4.7 g/dL (3.5-5.1); Alkaline Phosphatase 173 U/L (38-126); Anion Gap 12 mmol/L (4-12); Aspartate Amino Transferase 51 U/L (17-59); Bilirubin,Total 1.1 mg/dL (0.2-1.3); Blood Urea Nitrogen 37 mg/dL (9-20); Calcium 10.4 mg/dL (8.4-10.2); Carbon Dioxide 21 mmol/L (22-30); Chloride 104 mmol/L (98-107); Estimated CRCL calculation 64 ml/min; Estimated Glomerular Filt Rate 49; Glucose 419 mg/dL (65-110); Magnesium 2.5 mg/dL (1.6-2.3); Potassium 5.2 mmol/L (3.4-5.0); Sodium 137 mmol/L (137-145)
[2023-11-01 18:58] LABS: Appearance Urine Clear (Clear); Bacteria Urine None Seen /hpf; Bilirubin Urine Negative (Negative); Blood Urine Trace (Negative); Color Urine Yellow (Yellow); Glucose Urine UA 3+ mg/dL (Negative); Ketones Urine Negative (Negative); Leukocyte Esterase Ur Negative LEU/UL (Negative); Nitrate Urine Negative (Negative); Protein Urine Negative (Negative); RBC Urine 0-2 /hpf (0-2); Squamous Epithelial Cell Urine None Seen /hpf (Few); Urobilinogen Urine 0.2 mg/dL (<2.0); WBC Urine 0-5 /hpf (0-3); pH Urine 5.5 (5.0-9.0)
[2023-11-01 19:00] LABS: Beta-Hydroxybutyrate/Acetoacetate 0.19 mmol/L (0.02-0.27)
[2023-11-01 19:05] LABS: Add Urine Microscopic? YES; Specific Grav Ur 1.039 (1.001-1.035)
--- NOTE | 2023-11-01 19:10 | PC.NURSE ---
Report given to NEGRO Carlson
--- NOTE | 2023-11-01 19:19 | ED.GENADULT ---
HPI - General Adult General Chief complaint: Recheck/Abnormal Lab/Rx Stated complaint: elevated BS Time Seen by Provider: 11/01/23 18:38 History of Present Illness HPI narrative: Patient is a 53-year-old male who presents ER with elevated blood sugar. Reports he went to [facility] to receive a treatment today for his multiple myeloma. They gave him some dexamethasone but then got blood work back that showed his blood sugar was greater than 600. He had been getting dexamethasone before his treatments the last couple of weeks. No history of diabetes. He does report that he has been having polydipsia and polyuria. He has been drinking a couple gal of milk today because he says thirsty. Related Data Home Medications Medication Instructions Recorded Confirmed apixaban 5 mg tablet (Eliquis) 5 mg PO BID 10/11/23 10/11/23 pomalidomide 2 mg capsule See Rx Instructions .Route .COMPLEX 10/11/23 10/11/23 (Pomalyst) metoprolol succinate 25 mg 75 mg PO DAILY 11/01/23 tablet,extended release 24 hr Allergies Allergy/AdvReac Type Severity Reaction Status Date / Time Sulfa (Sulfonamide AdvReac Intermediate Rash Verified 11/01/23 17:47 Antibiotics) Review of Systems Review of Systems: All systems reviewed & are unremarkable except as noted in HPI and below Constitutional: Constitutional: Denies chills, Denies fatigue and Denies fever(s) Comments: Sweats ENT: Reports system reviewed and no additional complaints, except as documented Cardiovascular: Cardiovascular: Reports no additional cardiovascular complaints Respiratory: Respiratory: Reports no additional respiratory complaints Endocrine: Endocrine: Reports excessive sweating, Denies fatigue, Reports polydipsia and Reports polyuria [facility] Past Medical History Medical History BMI 38.0-38.9,adult BMI greater than 40 Cough FRIAS (dyspnea on exertion) FH: bone marrow transplant Persistent headaches Pulmonary embolism Right flank pain Sinusitis Surgical History Surgical History No pertinent past surgical history Family History Family History Father No problems noted. Mother Diabetes mellitus Sibling No problems noted. Social History Social History Smoking status: Former smoker Second hand tobacco smoke exposure: No Smoking end date: 06/21/00 Alcohol intake: current Substance use: never Substance use type: does not use Do You Feel Safe in your Home?: Yes Lack of Transportation: No Lack of Food: Never True Current Housing: I Have Housing Concerned About Future Housing: No Difficulty Paying Gas/Electric Bills: No Difficulty Paying for Meds: No Currently Unemployed: No Education: Master's Degree or Higher Difficulty w/ Childcare or Family Care: No Living arrangements: with family Occupation/Education: occupation 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 HEAD: Normocephalic, atraumatic. ENT: Mucous membranes moist. NECK: Supple. CHEST: Clear to auscultation. No respiratory distress. HEART: Regular rate and rhythm. Normal peripheral pulses. ABDOMEN: Soft, nontender, nondistended EXTREMITIES: Normal range of motion. SKIN: Warm, moist, no rash. NEURO: Alert and oriented x3. PSYCH: Normal mood and affect. Course Course Emergency Course: Patient resting comfortably. Blood sugar still over 360 after 2 L IV fluid. He will need admission for observation for better glycemic control since this is a new issue for him. Patient accepted to the hospitalist service. Vital Signs
[2023-11-01] MEDS: SODIUM CHLORIDE 0.9% IV 1,000 ML 999 ML IV CONT ×2 (19:33→20:08)
[2023-11-01 19:41] LABS: Hemoglobin A1C 8.2 % (<5.7)
[2023-11-01 19:44] LABS: Alveolar/Arterial O2 Gradient 29.7 mmHg; Base Excess ABG -3.1 mEq/l (+/-2.0); Carboxyhemoglobin 0.8 % THb (0-2.0); Fractional Inspired Oxygen 21 %; HCO3 ABG 20.2 mEq/l (22.0-26.0); Methemoglobin ABG 0.1 %THb (0-1.5); Oxygen Content ABG 21.3 %vol (16.0-22.0); Oxygen Saturation ABG 96.3 % (95.0-100.0); Oxyhemoglobin 94.7 % THb (90.0-100.0); PO2 ABG 81.7 mmHg (80.0-100.0); PO2 FiO2 Ratio Arterial Blood 3.89 %; Reduced Hemoglobin 4.4 %THb (0-5.0); pH ABG 7.419 (7.350-7.450)
[2023-11-01 19:45] LABS: Device ROOM AIR; Site Drawn RIGHT BRACHIAL
[2023-11-01 20:44] LABS: Glucose Point of Care 347 mg/dl (65-105)
--- NOTE | 2023-11-01 20:55 | PM.IMHP ---
H&P: HPI History of Present Illness Date/Time: 11/01/23 20:55 Chief Complaint: uncontrolled sugar Narrative: This is a 53-year-old male with past medical history significant for multiple myeloma, patient is undergoing chemotherapy, atrial fibrillation, obesity, hypertension, PE. Patient presents to the emergency room after he went for his regular checkup at cancer center he was found to have a blood sugar in the 500s patient states that he has been having polydipsia polyphagia polyuria has been using the bathroom every 2 hours has been drinking 2 gal of milk a day feeling very thirsty. Review of Systems Review of Systems: Uncontrolled sugars, polydipsia, polyphagia, polyuria. Constitutional: Constitutional: Denies chills and Denies night sweats Eyes: Eyes: Reports blurry vision ENT: Denies dysphagia and Denies odynophagia Cardiovascular: Cardiovascular: Denies chest pain, Denies radiating jaw, neck or arm pain and Denies palpitations Respiratory: Respiratory: Denies cough Gastrointestinal: Gastrointestinal: Denies abdominal pain, Denies diarrhea, Denies nausea and Denies vomiting Genitourinary: Genitourinary: Denies dysuria Musculoskeletal: Musculoskeletal: Denies myalgias Integumentary/Breasts: Skin/Breast: Denies rash Neurologic: Denies focal weakness and Denies Sensory deficit (Neuro) Psychiatric: Psychiatric: Reports no additional psychiatric complaints and Reports as per HPI Endocrine: Endocrine: Reports polyphagia, Reports polydipsia and Reports polyuria Hematologic/Lymphatic: Hematologic/Lymphatic: Reports no additional hematologic/lymphatic complaints and Reports as per HPI Allergic/Immunologic: Allergic/Immunologic: Reports no additional allergic/immunologic complaints [facility] Past Medical History Medical History BMI 38.0-38.9,adult BMI greater than 40 Cough FRIAS (dyspnea on exertion) FH: bone marrow transplant Persistent headaches Pulmonary embolism Right flank pain Sinusitis Surgical History Surgical History No pertinent past surgical history Family History Family History (Updated 11/01/23 @ 23:45 by Hilda Betancourt RN) Father Diabetes mellitus Mother Diabetes mellitus Sibling No problems noted. Grandparent Breast cancer Grandparent Myocardial infarct Grandparent Cerebrovascular accident Social History Social History Smoking packs per day: 1 Smoking cigarettes per day: 20.0 Years smoked: 6 Smoking pack-years: 6.00 Smoking status: Former smoker Second hand tobacco smoke exposure: No Smoking end date: 06/21/00 Alcohol intake: current Drinks per week: 1 Substance use: never Substance use type: does not use Do You Feel Safe in your Home?: Yes Lack of Transportation: No Lack of Food: Never True Current Housing: I Have Housing Concerned About Future Housing: No Difficulty Paying Gas/Electric Bills: No Difficulty Paying for Meds: No Currently Unemployed: No Education: Master's Degree or Higher Difficulty w/ Childcare or Family Care: No Living arrangements: with family Occupation/Education: occupation 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
[2023-11-01 21:25] LABS: Glucose Point of Care 341 mg/dl (65-105)
[2023-11-01] MEDS: SODIUM CHLORIDE 0.9% IV 1,000 ML 125 ML IV CONT (22:08)
[2023-11-01 23:36] LABS: Glucose Point of Care 313 mg/dl (65-105)
--- NOTE | 2023-11-01 23:43 | ADMGEN ---
This patient, Tony Boykin, was admitted to [facility] Surg Room 328-01. Patient/family oriented to hospital policies and general routines including ID bracelet, bed and alarms, visiting hours, pain management, procedures, bathroom and other care routines, personal items, smoking policy, room service/diet, and visiting hours. Information on how to activate the Rapid Response Team has been discussed. Patient/Family are encouraged to report perceived risks to care and to ask questions if they do not understand what they are told or what they should do.
[2023-11-02 01:57] VITALS: BP 142/79; PULSE 58; RESP 20; TEMP 36.3; O2SAT 96
[2023-11-02 05:23] VITALS: BP 128/75; PULSE 50; RESP 18; TEMP 36.1; O2SAT 95
[2023-11-02] MEDS: SODIUM CHLORIDE 0.9% IV 1,000 ML 125 ML IV CONT ×3 (05:39→20:28)
[2023-11-02 07:44] LABS: Glucose Point of Care 338 mg/dl (65-105)
[2023-11-02] MEDS: INSULIN HUMAN REGULAR (*BKC) 100 UNITS/ML 10 UNITS SUB-Q ×3 (07:59→16:57)
[2023-11-02 08:00] VITALS: O2SAT 95
[2023-11-02 08:05] VITALS: PULSE 76
[2023-11-02] MEDS: LOSARTAN POTASSIUM 25 MG TABLET PO (08:05)
[2023-11-02] MEDS: METOPROLOL SUCCINATE EXT REL 25 MG TABCR 75 MG PO (08:05)
[2023-11-02] MEDS: APIXABAN 5 MG TABLET PO ×2 (08:05→20:28)
[2023-11-02] MEDS: dilTIAZem HCL CD 300 MG CAP.24HR PO (08:05)
--- NOTE | 2023-11-02 09:47 | PM.IMPN ---
Progress Note: A&P Assessment and Plan (1) Hyperglycemia: Code(s): R73.9 - Hyperglycemia, unspecified Status: Acute (2) Morbid obesity with BMI of 40.0-44.9, adult: Code(s): E66.01 - Morbid (severe) obesity due to excess calories; Z68.41 - Body mass index [BMI] 40.0-44.9, adult Status: Acute (3) Atrial fibrillation with rapid ventricular response: Code(s): I48.91 - Unspecified atrial fibrillation Status: Acute Assessment and Plan: (1) Hyperglycemia: ?Code(s): R73.9 - Hyperglycemia, unspecified ?Status:?Acute ?Assessment and Plan: ?placed in observation ?Accu-Cheks AC and HS ?regular insulin sliding scale ?likely secondary to steroids 11/01: hemoglobin A1c 8.2, possible undiagnosed diabetes glucose is not well controlled continue insulin 10 unit a.c. Add insulin sliding scale a.c. q.h.s. Start Lantus 30 units now and Q.h.s. consult family life educator Refer patient to embedded systems designer at discharge optimize insulin doses before discharge (2) Morbid obesity with BMI of 40.0-44.9, adult: ?Code(s): E66.01 - Morbid (severe) obesity due to excess calories; Z68.41 - Body mass index [BMI] 40.0-44.9, adult ?Status:?Acute ?Assessment and Plan: ?lifestyle and diet modifications (3) Multiple myeloma: ?Qualifiers: ?Multiple myeloma remission status:?not in remission? Qualified Code(s):?C90.00 - Multiple myeloma not having achieved remission ?Code(s): C90.00 - Multiple myeloma not having achieved remission ?Status:?Chronic ?Assessment and Plan: ?patient is undergoing chemotherapy Dehydration , hyperkalemia, hyperkalemia 10.4, start normal saline IV Follow-up BMP chronic AFib Continue Cardizem 300 mg daily p.o., Eliquis 5 mg b.i.d. p.o. Plan This is a 53-year-old male with past medical history significant for multiple myeloma, patient is undergoing chemotherapy, atrial fibrillation, obesity, hypertension, PE.? Patient presents to the emergency room after he went for his regular checkup at cancer center he was found to have a blood sugar in the 500s patient states that he has been having polydipsia polyphagia polyuria has been using the bathroom every 2 hours has been drinking 2 gal of milk a day feeling very thirsty. Subjective Date/time seen: 11/02/23 09:47 Interval history: I saw and exam patient today, patient denies abdomen pain, chest pain, palpitation, headache, patient has polyuria, polydipsia Exam Narrative: GENERAL: Pleasant, in no acute distress. Well-nourished. - EYES: EOMI. Anicteric. - HENT: Moist mucous membranes. - LUNGS: Clear to auscultation bilaterally, no wheezing, rhonchi, or rales. - CARDIOVASCULAR: Regular rate and rhythm. No murmur. No JVD. - ABDOMEN: Soft, non-tender and non-distended. No palpable masses. - EXTREMITIES: No edema. Peripheral pulses 2+. Non-tender. - NEUROLOGIC: No focal neurological deficits. CN II-XII grossly intact. - PSYCHIATRIC: Awake, Alert and oriented x 3. Appropriate mood and affect. - SKIN: No rashes or lesions. Warm. - LYMPH: No cervical lymphadenopathy. Objective Data Vital Signs Vital Signs: Vital Signs - 24 hr 11/01/23 17:32 11/01/23 20:08 11/01/23 20:10 Temperature 98.4 F Pulse Rate 66 Respiratory Rate 18 Blood Pressure 117/89 142/73 H Pulse Oximetry 98 98 98 Oxygen Delivery Room Air 11/01/23 20:15 11/01/23 20:16 11/01/23 20:31 Temperature Pulse Rate 101 H Respiratory Rate 23 H Blood Pressure 133/76 139/74 Pulse Oximetry 100 95 96 Oxygen Delivery 11/01/23 20:46 11/01/23 21:01 11/01/23 21:45 Temperature Pulse Rate 104 H 101 H 100 Respiratory Rate 19 21 H 18 Blood Pressure 128/71 147/95 H 138/76 Pulse Oximetry 96 97 98 Oxygen Delivery 11/01/23 22:10 11/01/23 22:17 11/01/23 22:32 Temperature Pulse Rate 113 H 105 H 100 Respiratory Rate 18 22 H 23 H Blood Pressure 147/96 H 1
[2023-11-02 09:55] LABS: Anion Gap 9 mmol/L (4-12); Blood Urea Nitrogen 30 mg/dL (9-20); Carbon Dioxide 19 mmol/L (22-30); Chloride 104 mmol/L (98-107); Estimated CRCL calculation 87 ml/min; Estimated Glomerular Filt Rate > 60; Potassium 4.6 mmol/L (3.4-5.0); Sodium 132 mmol/L (137-145)
[2023-11-02 09:57] LABS: Hematocrit 39.2 % (42.0-52.0); Hemoglobin 13.3 g/dL (14.0-18.0); Mean Corpuscular HGB Conc 33.9 g/dl (32-36); Mean Corpuscular Volume 97.3 fl (80-100); Mean Platelet Volume 10.2 fl (7.4-10.4); Platelet Count Result 190 k/mm3 (150-375); Red Blood Count 4.03 M/mm3 (4.6-6.20); Red Cell Distribution Width 14.7 % (11.5-14.5); White Blood Count 4.6 K/mm3 (4.5-10.0)
[2023-11-02 10:02] LABS: Glucose 537 mg/dL (65-110)
[2023-11-02] MEDS: INSULIN GLARGINE (*BKC) 100 UNITS/ML 30 UNITS SUB-Q (10:20)
[2023-11-02] MEDS: INSULIN ASPART (*BKC) 100 UNITS/ML 20 UNITS SUB-Q (10:22)
[2023-11-02 11:27] LABS: Glucose Point of Care 398 mg/dl (65-105)
[2023-11-02 11:56] LABS: Glucose Point of Care 352 mg/dl (65-105)
[2023-11-02] MEDS: INSULIN ASPART (*BKC) 100 UNITS/ML SUB-Q ×3 (12:14→20:29)
[2023-11-02 13:28] LABS: Glucose Point of Care 316 mg/dl (65-105)
[2023-11-02 14:00] VITALS: BP 121/67; PULSE 52; RESP 24; TEMP 36.3; O2SAT 97
[2023-11-02 15:21] LABS: Glucose Point of Care 230 mg/dl (65-105)
[2023-11-02 16:23] LABS: Glucose Point of Care 209 mg/dl (65-105)
[2023-11-02 20:26] LABS: Glucose Point of Care 313 mg/dl (65-105)
[2023-11-02] MEDS: INSULIN GLARGINE (*BKC) 100 UNITS/ML 31 UNITS SUB-Q (20:29)
[2023-11-02 20:54] VITALS: BP 114/81; PULSE 52; RESP 20; TEMP 36.3; O2SAT 98
[2023-11-03 00:02] LABS: Glucose Point of Care 373 mg/dl (65-105)
[2023-11-03 04:34] LABS: Glucose Point of Care 265 mg/dl (65-105)
[2023-11-03 05:26] VITALS: BP 111/75; PULSE 75; RESP 18; TEMP 36.3; O2SAT 96
[2023-11-03] MEDS: SODIUM CHLORIDE 0.9% IV 1,000 ML 125 ML IV CONT (05:29)
[2023-11-03 08:03] LABS: Glucose Point of Care 285 mg/dl (65-105)
--- NOTE | 2023-11-03 09:11 | PM.IMPN ---
Progress Note: A&P Assessment and Plan (1) Hyperglycemia: Code(s): R73.9 - Hyperglycemia, unspecified Status: Acute (2) Morbid obesity with BMI of 40.0-44.9, adult: Code(s): E66.01 - Morbid (severe) obesity due to excess calories; Z68.41 - Body mass index [BMI] 40.0-44.9, adult Status: Acute (3) Atrial fibrillation with rapid ventricular response: Code(s): I48.91 - Unspecified atrial fibrillation Status: Acute Assessment and Plan: (1) Hyperglycemia: ?Code(s): R73.9 - Hyperglycemia, unspecified ?Status:?Acute ?Assessment and Plan: ?placed in observation ?Accu-Cheks AC and HS ?regular insulin sliding scale ?likely secondary to steroids 11/01: hemoglobin A1c 8.2, possible undiagnosed diabetes glucose is not well controlled continue insulin 10 unit a.c. Add insulin sliding scale a.c. q.h.s. Start Lantus 30 units now and Q.h.s. consult prosthodontist/educator Refer patient to hadoop java developer at discharge optimize insulin doses before discharge (2) Morbid obesity with BMI of 40.0-44.9, adult: ?Code(s): E66.01 - Morbid (severe) obesity due to excess calories; Z68.41 - Body mass index [BMI] 40.0-44.9, adult ?Status:?Acute ?Assessment and Plan: ?lifestyle and diet modifications (3) Multiple myeloma: ?Qualifiers: ?Multiple myeloma remission status:?not in remission? Qualified Code(s):?C90.00 - Multiple myeloma not having achieved remission ?Code(s): C90.00 - Multiple myeloma not having achieved remission ?Status:?Chronic ?Assessment and Plan: ?patient is undergoing chemotherapy Dehydration , hyperkalemia, hyperkalemia 10.4, start normal saline IV Follow-up BMP chronic AFib Continue Cardizem 300 mg daily p.o., Eliquis 5 mg b.i.d. p.o. Plan This is a 53-year-old male with past medical history significant for multiple myeloma, patient is undergoing chemotherapy, atrial fibrillation, obesity, hypertension, PE.? Patient presents to the emergency room after he went [facility] he was found to have a blood sugar in the 500s patient states that he has been having polydipsia polyphagia polyuria has been using the bathroom every 2 hours has been drinking 2 gal of milk a day feeling very thirsty. Subjective Date/time seen: 11/03/23 09:11 Interval history: 11/02: Review of Systems Review of Systems: All systems reviewed & are unremarkable except as noted in HPI and below Exam Narrative: General: well appearing, appears stated age. HEENT: normocephalic, atraumatic. Mucous membranes moist. EOMI, PERRLA, bilateral sclera anicteric, no conjunctival injection. Neck supple without JVD, lymphadenopathy, or bruit. Respiratory: clear to ascultation bilaterally. No rales/rhonic/wheezes. Cardiovascular: Regular rate and rhythm, normal S1-S2 upon ascultation. No murmurs, rubs, or clicks. PMI is nondisplaced, capillary refill less than 3 second. Abdomen: Soft, round, no pulsatile masses, nondistended and nontender. No rebound, no guarding. No CVA tenderness, no hepatosplenomegaly. Bowel sounds present to all four quadrants. No high pitch or tinkling sounds, resonant to percussion. Extremities: No cyanosis, clubbing, or edema present. Pulses are palpable 2/2. Active ROM to all four extremities. Neuro: Alert and orientated x 4. PERRLA. Cranial nerves 2-12 intact without focal deficit. Skin: Warm, dry, and intact, without rash, erythema, or lesion. Lines: Incisions: Psych: pleasant, cooperative, normal speech, normal affect, no hallucinations, no dysarthia Objective Data Vital Signs Vital Signs: Vital Signs - 24 hr 11/02/23 14:00 11/02/23 20:54 11/03/23 05:26 Temperature 97.3 F L 97.4 F L 97.3 F L Pulse Rate 52 L 52 L 75 Respiratory Rate 24 H 20 18 Blood Pressure 121/67 114/81 111/75 Pulse Oximetry 97 98 96 Intake/Output Intake/Output: Intake & Output 10/30
[2023-11-03] MEDS: INSULIN HUMAN REGULAR (*BKC) 100 UNITS/ML 10 UNITS SUB-Q ×2 (09:25→12:25)
[2023-11-03] MEDS: INSULIN ASPART (*BKC) 100 UNITS/ML SUB-Q ×2 (09:26→12:25)
[2023-11-03 09:27] VITALS: PULSE 80
[2023-11-03] MEDS: APIXABAN 5 MG TABLET PO (09:27)
[2023-11-03] MEDS: dilTIAZem HCL CD 300 MG CAP.24HR PO (09:27)
[2023-11-03] MEDS: LOSARTAN POTASSIUM 25 MG TABLET PO (09:27)
[2023-11-03] MEDS: METOPROLOL SUCCINATE EXT REL 25 MG TABCR 75 MG PO (09:27)
[2023-11-03 10:26] LABS: Hematocrit 40.3 % (42.0-52.0); Hemoglobin 13.2 g/dL (14.0-18.0); Mean Corpuscular HGB Conc 32.8 g/dl (32-36); Mean Corpuscular Hemoglobin 32.8 pg (26-34); Mean Platelet Volume 9.8 fl (7.4-10.4); Platelet Count Result 188 k/mm3 (150-375); Red Blood Count 4.03 M/mm3 (4.6-6.20); Red Cell Distribution Width 14.6 % (11.5-14.5); White Blood Count 4.6 K/mm3 (4.5-10.0)
[2023-11-03 10:40] LABS: Alanine Aminotransferase 76 U/L (6-50); Albumin Level 3.5 g/dL (3.5-5.1); Alkaline Phosphatase 71 U/L (38-126); Anion Gap 6 mmol/L (4-12); Aspartate Amino Transferase 53 U/L (17-59); Bilirubin,Total 1.2 mg/dL (0.2-1.3); Blood Urea Nitrogen 26 mg/dL (9-20); Calcium 7.5 mg/dL (8.4-10.2); Carbon Dioxide 20 mmol/L (22-30); Chloride 107 mmol/L (98-107); Cholesterol 190 mg/dL (0-200); Estimated CRCL calculation 95 ml/min; Estimated Glomerular Filt Rate > 60; Glucose 331 mg/dL (65-110); HDL Direct 62 mg/dL; Magnesium 2.2 mg/dL (1.6-2.3); Potassium 4.5 mmol/L (3.4-5.0); Sodium 133 mmol/L (137-145); Triglycerides 160 mg/dL (<150)
[2023-11-03 10:51] LABS: LDL Cholesterol Direct 115 mg/dL
[2023-11-03 11:47] LABS: Glucose Point of Care 288 mg/dl (65-105)
[2023-11-03 14:01] VITALS: BP 107/73; PULSE 81; RESP 16; TEMP 36.8; O2SAT 97
[2023-11-03 16:30] VITALS: BMI 39.6
[2023-11-03 16:55] LABS: Glucose Point of Care 146 mg/dl (65-105)
--- NOTE | 2023-11-03 17:14 | PC.NURSE ---
On 11/03/23, the SLEEVE FIXER, Deanna Shaw, provided care and completed [employer] documentation on this patient. I have reviewed the SLEEVE FIXER's documentation and agree with the findings.
--- NOTE | 2023-11-03 17:30 | PC.NURSE ---
On 11/03/23, the CONVERSION WORKER, Deanna Shaw, provided care and completed [employer] documentation on this patient. I have reviewed the CONVERSION WORKER's documentation and agree with the findings.
--- NOTE | 2023-11-03 21:14 | PM.DS ---
DS: Admitting Diagnosis Discharge Date 11/03/23 Admitting Diagnosis hyperglycemia DS: Discharge Diagnosis Discharge Diagnosis (1) Hyperglycemia: Code(s): R73.9 - Hyperglycemia, unspecified Status: Acute (2) Morbid obesity with BMI of 40.0-44.9, adult: Code(s): E66.01 - Morbid (severe) obesity due to excess calories; Z68.41 - Body mass index [BMI] 40.0-44.9, adult Status: Acute (3) Atrial fibrillation with rapid ventricular response: Code(s): I48.91 - Unspecified atrial fibrillation Status: Acute Assessment and Plan: (1) Hyperglycemia: ?Code(s): R73.9 - Hyperglycemia, unspecified ?Status:?Acute ?Assessment and Plan: ?placed in observation ?Accu-Cheks AC and HS ?regular insulin sliding scale ?likely secondary to steroids 11/01: hemoglobin A1c 8.2, possible undiagnosed diabetes glucose is not well controlled continue insulin 10 unit a.c. Add insulin sliding scale a.c. q.h.s. Start Lantus 30 units now and Q.h.s. consult certified diabetes educator Refer patient to deputy chief magistrate at discharge optimize insulin doses before discharge 11/02: D/c with humalog 12 units with meals and SSI D/c with Lantus 40 units nightly Instructed patient on hypoglycemia and s/s to monitor for. Instructed him to follow with PCP in 1 week for new insulin rx. Patient would benefit from endocrine outpatient (2) Morbid obesity with BMI of 40.0-44.9, adult: ?Code(s): E66.01 - Morbid (severe) obesity due to excess calories; Z68.41 - Body mass index [BMI] 40.0-44.9, adult ?Status:?Acute ?Assessment and Plan: ?lifestyle and diet modifications (3) Multiple myeloma: ?Qualifiers: ?Multiple myeloma remission status:?not in remission? Qualified Code(s):?C90.00 - Multiple myeloma not having achieved remission ?Code(s): C90.00 - Multiple myeloma not having achieved remission ?Status:?Chronic ?Assessment and Plan: ?patient is undergoing chemotherapy Dehydration , hyperkalemia 5.4, hypercalcemia 10.4, start normal saline IV Follow-up BMP 11/02: K+ 4.5, Ca 7.5 Tolerating PO intake D/c FLUids chronic AFib Continue Cardizem 300 mg daily p.o., Eliquis 5 mg b.i.d. p.o. Plan This is a 53-year-old male with past medical history significant for multiple myeloma, patient is undergoing chemotherapy, atrial fibrillation, obesity, hypertension, PE.? Patient presents to the emergency room after he went for his regular checkup at [facility] he was found to have a blood sugar in the 500s patient states that he has been having polydipsia polyphagia polyuria has been using the bathroom every 2 hours has been drinking 2 gal of milk a day feeling very thirsty. DS: Summary Hospital Course Reason for hospitalization: Hyperglycemia Hospital Course: 53 year old male with a PMH of multiple myeloma (patient is undergoing chemotherapy), atrial fibrillation, obesity, hypertension, and PE.? Patient presents to the emergency room after he went for his regular checkup at [facility] he was found to have a blood sugar in the 500s patient states that he has been having polydipsia, polyphagia, and polyuria has been using the bathroom every 2 hours has been drinking 2 gal of milk a day feeling very thirsty. He was instructed to go to [facility] but he came to [place] because he lives in [place]. He follows with Dr Velazquez. He is anxious to discharge as he needs to get back to work. Blood glucose is more controlled today but am check was still 331 on BMP. Will increase his lantus to 40 units at HS. He is being d/c'd home with humalog 12 units TID with meals and ssi. I reviewed hypoglycemia signs and symptoms and how to treat. He was seen by our community health educator, Vivien today prior to discharge. Outpatient DM education and nutritional therpay have been ordered. Remainder of labs and vitals reviewed. Patient is safe to discharge with a
== END 2023-11-03 17:50 | disposition home or self-care (01) ==
LOC: ANHED 21:00 → ANH3MEDSUR 23:16
PROVIDERS: Hospitalist; Nurse Practitioner Acute Care; Admitting Provider Internal Medicine; Emergency Provider Emergency Medicine; PCP Family Medicine; Visit Provider General Practice
DX: R73.9 Hyperglycemia, unspecified (principal); C90.00 Multiple myeloma not having achieved remission; E86.0 Dehydration; E87.5 Hyperkalemia; E83.52 Hypercalcemia; I48.91 Unspecified atrial fibrillation; I10 Essential (primary) hypertension; E66.01 Morbid (severe) obesity due to excess calories; Z68.39 Body mass index [BMI] 39.0-39.9, adult; Z87.891 Personal history of nicotine dependence; Z79.01 Long term (current) use of anticoagulants; Z86.711 Personal history of pulmonary embolism
CPT/HCPCS: 36415; 36600; 80048; 80053; 80061; 81001; 82010; 82375; 82805; 82948; 83036; 83050; 83735; 84100; 85025; 85027; 96360; 96361; 99285; A9270; G0378; J1815; J7030

== ENCOUNTER 2024-01-11 14:59 | Outpatient (CLI) | payer BC, SELFPAY ==
--- NOTE | ~2024-01-11 | XR_ITS ---
EXAMINATION: XR chest 2V 01/11/2024 15:11 INDICATION: Wheezing with cough for 2 weeks PROCEDURE: 2 view chest COMPARISON: Comparison to multiple prior studies sequentially, with oldest reviewed study dated 07/04. FINDINGS: The lungs are clear. The cardiomediastinal silhouette is within normal limits. There are no pleural effusions. There is no pneumothorax suspected. There are healed bilateral rib fractures. IMPRESSION: 1: NO ACUTE CARDIOPULMONARY DISEASE. Reviewed, dictated and finalized at location B.
== END 2024-01-11 15:00 ==
LOC: MICIMG 15:00
PROVIDERS: PCP Physician Assistant Medical; Visit Provider Physician Assistant Medical
DX: R06.2 Wheezing (principal); R05.9 Cough, unspecified
CPT/HCPCS: 71046

== ENCOUNTER 2024-04-01 09:44 | Outpatient (CLI) | payer BC, SELFPAY ==
--- NOTE | ~2024-04-01 | US_ITS ---
EXAMINATION: US abdomen limited DATE: 04/01/2024 10:16 INDICATION: R79.89 - Other specified abnormal findings of blood chemi... TECHNIQUE: Multiple grayscale and Doppler ultrasound images of limited portions of the abdomen were o btained. COMPARISON: 01/12/2017; CT abdomen pelvis 03/16/2017. FINDINGS: The visualized portions of the pancreas are normal. The liver echogenicity is increased. No surface nodularity. Normal hepatopetal flow in the main portal vein. The gallbladder is normal with no abnormal wall thickening, pericholecystic fluid or stones. The common bile duct measures 3 mm. The re was no sonographic Pereyra sign. IMPRESSION: Echogenic liver, most commonly due to steatosis but also can be seen with hepatitis and fibrosis. Reviewed, dictated and finalized at location K. IMPRESSION: Echogenic liver, most commonly due to steatosis but also can be seen with hepat itis and fibrosis.
== END 2024-04-01 09:45 | disposition home or self-care (01) ==
LOC: ANHIMG 09:45
PROVIDERS: PCP Physician Assistant Medical; Visit Provider Nurse Practitioner Family
DX: R79.89 Other specified abnormal findings of blood chemistry (principal); K76.9 Liver disease, unspecified
CPT/HCPCS: 76705

== ENCOUNTER 2024-07-06 08:41 | Outpatient (CLI) | payer BC, SELFPAY ==
--- NOTE | ~2024-07-06 | XR_ITS ---
XR chest 2V Ordering provider: Vaishnavi Fallon NP History: 54 years Male with . J20.9 - Acute bronchitis, unspecified . Comparison: None. FINDINGS: MEDIASTINUM: The cardiac silhouette is not enlarged. LUNGS: No infiltrates, effusions or pneumothorax. OTHER: Compression fracture of T8. MRI evaluation advised. Degenerative changes of the spine. No free air under the diaphragm. Healed fracture in the right seventh rib. IMPRESSION: No acute cardiopulmonary pathology. Reviewed, dictated and finalized at location A. S MAKER
== END 2024-07-06 08:42 | disposition home or self-care (01) ==
PROVIDERS: PCP Family Medicine
DX: J20.9 Acute bronchitis, unspecified (principal); R06.89 Other abnormalities of breathing
CPT/HCPCS: 71046